=== PATIENT | male | born 1950 | race African-American/Black ===

== ENCOUNTER 2022-06-25 02:56 | Inpatient (IN) | payer OTHER ==
[~2022-06-25] VITALS: Ht 167.6 cm; Wt 40.0 kg
[2022-06-25] MEDS ORDERED: NALOXONE HCL 0.4 MG/ML 1ML VIAL IV ONE (03:15)
[2022-06-25] MEDS ORDERED: SODIUM CHLORIDE 0.9% 1,000 ML IV ONE ×2 (03:15→03:30)
[2022-06-25] MEDS ORDERED: DEXT 5%/0.45% NACL 1000ML 1,000 ML IV ONE (03:30)
[2022-06-25] MEDS ORDERED: DEXTROSE 50% WATER 50ML SYRINGE IV ONE ×2 (03:30→04:00)
[2022-06-25] MEDS ORDERED: PIPERACILLIN/TAZ 3.375G PREMIX 50 ML IV ONE (03:30)
[2022-06-25] MEDS ORDERED: VANCOMYCIN 1G PREMIX 200 ML IV ONE (03:30)
[2022-06-25] MEDS ORDERED: KETOROLAC 15MG/ML VIAL IV ONE (04:00)
[2022-06-25] MEDS ORDERED: NALOXONE HCL 0.4 MG/ML 1ML VIAL ONE (04:00)
[2022-06-25 04:41] LABS: BG BASE EXCESS -9.9 mmol/L (-2.0-2.0); BG CARBOXYHEMOGLOBIN 0.5 % (0.5-1.5); BG DEOXYHEMOGLOBIN 0.3 % (0.0-5.0); BG FRACTION INSPIRED OXYGEN 100; BG HCO3 ACT 12.8 mmol/L (22.0-26.0); BG METHEMOGLOBIN 0.2 % (0.0-1.5); BG OXYGEN SATURATION 99.7 % (92.0-98.5); BG PCO2 21.4 mmHg (35.0-45.0); BG PH 7.395 (7.350-7.450); BG PO2 325.2 mmHg (75.0-100.0); BG SAMPLE SITE RIGHT FEMORAL; BG TOTAL HEMOGLOBIN 13.1 g/dL (12.0-18.0); BG VENT MODE MASK - NRB
[2022-06-25] MEDS ORDERED: MORPHINE SULFATE 2 MG/ML CPJ (NOT FOR IM USE) IV NR (04:45)
[2022-06-25 04:46] LABS: BASOPHILS % 0.4 % (0.0-2.0); EOSINOPHILS % 2.4 % (0.0-5.0); HEMATOCRIT. 37.3 % (42.0-52.0); LYMPHOCYTES % 7.9 % (20.0-50.0); MEAN CORPUSCULAR HEMOGLOBIN 28.3 pg (28.0-32.0); MEAN CORPUSCULAR VOLUME 88.3 fL (80.0-94.0); MEAN PLATELET VOLUME 10.3 fl (7.4-10.4); MONOCYTES % 6.1 % (2.0-8.0); NEUTROPHILS % 83.2 % (40.0-76.0); PLATELET 53 x1000/uL (130-400); RED BLOOD CELL COUNT 4.23 mill/uL (4.7-6.1); RED CELL DISTRIBUTION WIDTH 17.4 % (11.6-14.6)
[2022-06-25 04:53] LABS: CHLORIDE 103 mEq/L (98-107)
[2022-06-25] MEDS ORDERED: VANCOMYCIN 1G PREMIX 200 ML IV NR (06:45)
[2022-06-25] MEDS ORDERED: MAGNESIUM/ALUMINUM HYDROXIDE/SIMETHICONE 30ML UDC PO PRN (07:15)
[2022-06-25] MEDS ORDERED: ONDANSETRON HCL 4MG/2ML INJ IV PRN (07:15)
[2022-06-25] MEDS ORDERED: ENOXAPARIN 40MG/0.4ML SYR SUBCUT SCH (07:15)
[2022-06-25] MEDS ORDERED: IPRATROPIUM/ALBUTEROL 0.5-3(2.5)MG/3ML NEB NEB PRN (07:15)
[2022-06-25] MEDS ORDERED: DOCUSATE SODIUM 100MG CAPSULE PO PRN (07:15)
[2022-06-25] MEDS ORDERED: DEXT 5%/0.45% NACL 1000ML 1,000 ML IV SCH (07:15)
[2022-06-25] MEDS ORDERED: ACETAMINOPHEN 325MG TABLET PO PRN ×2 (07:15)
[2022-06-25] MEDS ORDERED: NITROGLYCERIN 0.4MG TABLET SL SL PRN (07:15)
[2022-06-25] MEDS ORDERED: CLONIDINE 0.1MG TABLET PO PRN (07:15)
[2022-06-25] MEDS ORDERED: NALOXONE HCL 0.4 MG/ML 1ML VIAL IM PRN (07:15)
[2022-06-25] MEDS ORDERED: ZOLPIDEM TARTRATE 5MG TABLET PO PRN (07:15)
[2022-06-25] MEDS ORDERED: GUAIFENESIN 200MG/10ML SUGAR FREE UDC PO PRN (07:15)
[2022-06-25] MEDS ORDERED: SODIUM CHLORIDE 0.9% 1000ML BAG (SEPSIS BOLUS) IV ONE (07:30)
[2022-06-25] MEDS ORDERED: NALOXONE HCL 0.4MG/ML VIAL IV PRN (07:45)
[2022-06-25 07:55] LABS: T4 FREE 1.15 ng/dL (0.76-1.46)
[2022-06-25] MEDS ORDERED: IPRATROPIUM/ALBUTEROL 0.5-3(2.5)MG/3ML NEB HHN SCH (08:00)
[2022-06-25 08:13] LABS: VITAMIN B12 SERUM >2000 pg/mL pg/mL (211-911)
[2022-06-25] MEDS ORDERED: FAMOTIDINE 20MG TABLET PO SCH (09:00)
[2022-06-25 09:08] LABS: BG BASE EXCESS -6.8 mmol/L (-2.0-2.0); BG CARBOXYHEMOGLOBIN 0.3 % (0.5-1.5); BG DEOXYHEMOGLOBIN 0.1 % (0.0-5.0); BG HCO3 ACT 17.7 mmol/L (22.0-26.0); BG METHEMOGLOBIN 0.3 % (0.0-1.5); BG OXYGEN SATURATION 99.9 % (92.0-98.5); BG OXYHEMOGLOBIN 99.3 % (94.0-97.0); BG PCO2 32.6 mmHg (35.0-45.0); BG PH 7.352 (7.350-7.450); BG PO2 519.4 mmHg (75.0-100.0); BG SAMPLE SITE RIGHT BRACHIAL; BG TOTAL HEMOGLOBIN 13.6 g/dL (12.0-18.0); BG VENT MODE MASK - NRB
[2022-06-25] MEDS ORDERED: NOREPINEPHRINE 8MG/250ML PMX 250 ML IV ONE (09:30)
[2022-06-25] MEDS ORDERED: MORPHINE SULFATE 2 MG/ML CPJ (NOT FOR IM USE) IV PRN (11:00)
[2022-06-25 13:53] VITALS: BP 47/24
[2022-06-25] MEDS ORDERED: PIPERACILLIN/TAZ 3.375G PREMIX 50 ML IV SCH (21:00)
[2022-06-25] MEDS ORDERED: PIPERACILLIN/TAZOBACTAM 3.375 G in DEXTROSE 5% WATER 50 ML IV SCH (21:00)
== END 2022-06-25 20:16 | DRG 720 ==
LOC: ER 03:14 → 7EST 05:30 → EDBEDREQ 05:36 → EDBEDREQSVC 05:36 → EDBEDREQTM 05:36 → ENRESERV 06:48 → CANRESERV 06:48 → EDBEDREQSVC 08:37 → ENRESERV 09:43 → CANRESERV 09:43 → EDBEDREQSVC 10:37 → ENRESERV 13:29
PROVIDERS: ADMIT Internal Medicine; ATTEND Internal Medicine
PROC: 02HV33Z Insertion of Infusion Device into Superior Vena Cava, Percutaneous Approach (ICD-10-PCS; principal; 2022-06-25)
PROC: B548ZZA Ultrasonography of Superior Vena Cava, Guidance (ICD-10-PCS; 2022-06-25)
PROC: 5A0935A Assistance with Respiratory Ventilation, Less than 24 Consecutive Hours, High Flow/Velocity Cannula (ICD-10-PCS; 2022-06-25)
PROC: 0Q9 Lower Bones, Drainage (ICD-10-PCS; 2022-06-25)
DX: A41.9 Sepsis, unspecified organism (principal); J96.00 Acute respiratory failure, unspecified whether with hypoxia or hypercapnia; R65.21 Severe sepsis with septic shock; G93.40 Encephalopathy, unspecified; E87.2 Acidosis; N17.9 Acute kidney failure, unspecified; E43 Unspecified severe protein-calorie malnutrition; R64 Cachexia; C78.7 Secondary malignant neoplasm of liver and intrahepatic bile duct; T40.601A Poisoning by unspecified narcotics, accidental (unintentional), initial encounter; C79.31 Secondary malignant neoplasm of brain; C34.90 Malignant neoplasm of unspecified part of unspecified bronchus or lung; F03.90 Unspecified dementia, unspecified severity, without behavioral disturbance, psychotic disturbance, mood disturbance, and anxiety; J44.9 Chronic obstructive pulmonary disease, unspecified; R29.6 Repeated falls; Z82.49 Family history of ischemic heart disease and other diseases of the circulatory system; Z66 Do not resuscitate; Z68.1 Body mass index [BMI] 19.9 or less, adult; Y92.89 Other specified places as the place of occurrence of the external cause
CPT/HCPCS: 36415; 36573; 36600; 71045; 76770; 80053; 80061; 80202; 82375; 82607; 82746; 82805; 82962; 83036; 83540; 83550; 83605; 84145; 84439; 84443; 84484; 85025; 87426; 93005; 93970; 94660; 99291; C1725; C9803; J1885; J2270; J2310; J2543; J3370; J3490; J7030; J7060